=== PATIENT | male | born 1945 | race Caucasian/White ===

== ENCOUNTER 2017-06-16 16:58 | Emergency (ER) | payer BC, MEDICARE ==
[~2017-06-16] VITALS: Ht 175.3 cm; Wt 89.0 kg
[2017-06-16 17:18] VITALS: BP 161/78; PULSE 82; RESP 18; TEMP 98.6; O2SAT 98
[2017-06-16 17:20] VITALS: BP 161/78; PULSE 82; RESP 18; O2SAT 98
--- NOTE | 2017-06-16 17:21 | PD ---
HPI Chief Complaint: fall. Right shoulder pain. Time Seen by Provider: 17:14 Travel History International Travel<30 days: No Contact w/Intl Traveler<30days: No History of Present Illness HPI 71-year-old male presents to the emergency department via EMS status post fall from a ladder less than 10 feet, with complaints of right upper arm/ shoulder pain. Patient denies loss of consciousness or neck pain. Pain is stated to be 7 out of 10 in the right upper arm. Patient does have some superficial abrasions to the right elbow, although he complains of no pain in the elbow itself. Patient has a small abrasion to the left lateral proximal kasper as well. Patient denies any other injury. He denies numbness, tingling, or weakness in the hand or elbow. He denies pain in the posterior right shoulder or chest. Patient states he lost his balance which caused him to fall. He has no known drug allergies. PFSH Social History Alcohol Use: Yes Tobacco Use: No Substance Use: No Allergies-Medications (Allergen,Severity, Reaction): Coded Allergies: No Known Allergies (Unverified , 06/16/17) Reported Meds & Prescriptions Reported Meds & Active Scripts Active Lortab (Hydrocodone-Acetaminophen) 5-325 Mg Tab 1 Tab PO Q6H PRN Ibuprofen 800 Mg Tab 800 Mg PO Q8H PRN Review of Systems Except as stated in HPI: all other systems reviewed are Neg General / Constitutional: No: Fever Eyes: No: Visual changes HENT: No: Headaches Cardiovascular: No: Chest Pain or Discomfort Respiratory: No: Shortness of Breath Gastrointestinal: No: Abdominal Pain Genitourinary: No: Dysuria Musculoskeletal: Positive: Arthralgias, Limited ROM, Pain (see history present illness.) Skin: No Rash Neurologic: No: Weakness Psychiatric: No: Depression Endocrine: No: Polydipsia Hematologic/Lymphatic: No: Easy Bruising Physical Exam Narrative GENERAL: Patient is somewhat anxious and in mild to moderate distress. SKIN: Warm and dry. Patient has some small superficial abrasions to the right posterior lateral elbow. Patient also has a small superficial abrasion to the left proximal lateral kasper. HEAD: Atraumatic. Normocephalic. Nontender. EYES: Pupils equal and round. No scleral icterus. No injection or drainage. ENT: No nasal bleeding or discharge. Mucous membranes pink and moist. No dental injury. Pharynx is clear. Airway is patent. NECK: Trachea midline. No bony step-off or tenderness. Range of motion is full without tenderness. Cervical spine is cleared utilizing nexus criteria. CARDIOVASCULAR: Regular rate and rhythm. No murmurs gallops or rubs. RESPIRATORY: No accessory muscle use. Clear to auscultation. Breath sounds equal bilaterally. No thoracic tenderness with palpation. GASTROINTESTINAL: Abdomen soft, non-tender, nondistended. Hepatic and splenic margins not palpable. MUSCULOSKELETAL: Extremities without clubbing, cyanosis, or edema. No obvious deformities. Patient is tenderness at the proximal humerus on the right side. Range of motion is limited secondary to pain. Exam is limited secondary to pain. There is no pain in the right clavicle or scapula. Right elbow has full range of motion. Normal rn transitional strength is noted in the right. Neurovascular exam is intact. NEUROLOGICAL: Awake and alert. No obvious cranial nerve deficits. Motor grossly within normal limits. Five out of 5 muscle strength in the arms and legs. Normal speech. PSYCHIATRIC: Appropriate mood and affect; insight and judgment normal. Data Data Last Documented VS Vital Signs Date Time Temp Pulse Resp B/P (MAP) Pulse Ox O2 Delivery O2 Flow Rate FiO2 06/16/17 17:20 82 18 161/78 (105) 98 Room Air 06/16/17 17:18 98.6 Orders Orders Shoulder, Complete (>2vws) (06/16/17 17:14) Ice/Cold Pack (06/16/17 17:14) Chest, Single Ap (06/16/17 17:14) Acetamin-Hydrocod 325-7.5 Mg ([place] 7.5 (06/16/17 17:30) Splint Or Brace Apply/Monitor (06/16/17 17:51) [facility] Medical Decision Making Medical Screen Exam Complete: Yes Emergency Medical Condition: Yes Differential Diagnosis Fall from ladder. Right shoulder strain. Right shoulder fracture. Narrative Course C-spine is cleared utilizing nexus criteria. Patient is removed from the backboard with help from the paramedics. X-ray of the right shoulder is ordered, as well as chest x-ray. Ice is applied to the injured area. Patient is given Lortab 7.5/325 one by mouth. X-ray shows no acute fracture or dislocation. Moderate arthritis is noted. Patient is placed in a sling for comfort. Patient is to ice the area frequently for the next several days. Patient is given ibuprofen 800 mg 3 times daily with food #60. Patient is given Lortab 5/325 one every 6 hours when necessary pain #20. Patient is to follow with Dr. Brito office for further evaluation and treatment. Patient can return to emergency Department with any worsening symptoms as needed. Diagnosis Primary Impression: Fall from ladder Qualified Codes: W11.XXXA - Fall on and from ladder, initial encounter Additional Impression: Right shoulder injury Qualified Codes: S49.91XA - Unspecified injury of right shoulder and upper arm , initial encounter Referrals: Rod Brito MD call for appointment Patient Instructions: Crush Injury (ED), General Instructions, Rotator Cuff Injury (DC) Additional Instructions: Patient is placed in a sling for comfort. Patient is to ice the area frequently for the next several days. Patient is given ibuprofen 800 mg 3 times daily with food #60. Patient is given Lortab 5/325 one every 6 hours when necessary pain #20. Patient is to follow with Dr. Brito office for further evaluation and treatment. Patient can return to emergency Department with any worsening symptoms as needed. Med/Other Pt SpecificInfo: Prescription(s) given Scripts Hydrocodone-Acetaminophen (Lortab) 5-325 Mg Tab 1 TAB PO Q6H Y for PAIN, #20 TAB 0 Refills Prov: Michel Chau MD 06/16/17 Ibuprofen (Ibuprofen) 800 Mg Tab 800 MG PO Q8H Y for Pain/Inflammation, #60 TAB 0 Refills Prov: Michel Chau MD 06/16/17 Disposition: 01 DISCHARGE HOME Condition: Stable Ignacio Crockett Jun 16, 2017 17:21
[2017-06-16] MEDS ORDERED: ACETAMINOPHEN/HYDROcodone 325 MG/7.5 MG TAB PO ONE (17:30)
--- NOTE | 2017-06-16 17:51 | RADRPT ---
EXAM DATE/TIME: 06/16/2017 17:26 [facility] COMPARISON: No previous studies available for comparison. INDICATIONS : Pain. Post fall from ladder. MEDICAL HISTORY : None. SURGICAL HISTORY : None. ENCOUNTER: Initial ACUITY: 1 day PAIN SCORE: 1/10 LOCATION: Bilateral chest FINDINGS: The lungs are symmetrically aerated. There is an 8mm calcified opacity in in the lateral right midlu ng, probably representing a granuloma. Both hemidiaphragms are well delineated. The heart is normal in size. No evidence of pneumothorax. There is some subcutaneous gas seen in the inferior left axi lla/lateral chest wall. No rib fractures seen. CONCLUSION: 1. Subcutaneous emphysema about the lateral left chest wall/axilla. 2. Probable granuloma in the right lateral midlung. 3. No evidence of pneumothorax. Yomi Conley MD on June 16, 2017 at 17:48 Board Certified Radiologist. This report was verified electronically.
[2017-06-16] MEDS ORDERED: HYDR-3533 PO (17:53)
[2017-06-16] MEDS ORDERED: IBUP800T23 PO (17:53)
--- NOTE | 2017-06-16 18:07 | RADRPT ---
EXAM DATE/TIME: 06/16/2017 17:28 [facility] COMPARISON: No previous studies available for comparison. INDICATIONS : Right shoulder pain. Patient states he fell off a seven foot ladder. MEDICAL HISTORY : None. SURGICAL HISTORY : None. ENCOUNTER: Initial ACUITY: 1 day PAIN SCORE: 8/10 LOCATION: Right shoulder. FINDINGS: There is normal alignment of the humeral head and glenoid. No fracture seen. Advanced degenerative changes seen in the a.c. joint. 7 mm calcified nodule in the right midlung. The visualized right up per ribs are intact. CONCLUSION: No evidence of fracture or dislocation. Yomi Conley MD on June 16, 2017 at 18:04 Board Certified Radiologist. This report was verified electronically.
[2017-06-16 18:35] VITALS: RESP 18
[2017-06-16 18:38] VITALS: BP 154/78
== END 2017-06-16 18:42 | disposition home or self-care (01) ==
LOC: NEPC 16:58
DX: S49.91XA Unspecified injury of right shoulder and upper arm, initial encounter (principal); S50.311A Abrasion of right elbow, initial encounter; S80.812A Abrasion, left lower leg, initial encounter; W11.XXXA Fall on and from ladder, initial encounter
CPT/HCPCS: 71010; 73030; 99283